=== PATIENT | female | born 1980 | race Caucasian/White ===

== ENCOUNTER → 2024-05-12 15:33 | Outpatient (REF) | payer BC, SELFPAY | LOC: WDC 15:33 | PROVIDERS: ATTENDING PHYSICIAN Obstetrics & Gynecology; FAMILY PHYSICIAN Family Medicine | DX: Z12.31 Encounter for screening mammogram for malignant neoplasm of breast (principal) | CPT/HCPCS: 77063; 77067 ==

== ENCOUNTER 2025-01-29 15:20 | Emergency (ER) | payer BC, SELFPAY ==
[2025-01-29 15:22] VITALS: BP 133/83
[2025-01-29 15:40] LABS: Hematocrit 38.9 % (37.0-47.0); Hemoglobin 12.8 g/dL (12.0-16.0); Mean Corp Hgb Conc. 32.9 g/dL (33.0-37.0); Mean Corpuscular Volume 84.4 fL (81.0-99.0); Nucleated Red Blood Cells % 0 %; Platelet Count 360 10^3/uL (130-400); Red Cell Dist. Width 12.9 % (11.5-14.5)
[2025-01-29 16:05] LABS: ALT (SGPT) 18 U/L (0-35); AST (SGOT) 21 U/L (14-36); Albumin 4.7 g/dl (3.5-5.0); Alkaline Phosphatase 67 U/L (38-126); Blood Urea Nitrogen 18 mg/dl (7-17); Calcium 9.5 mg/dl (8.4-10.2); Carbon Dioxide 29 mmol/L (22-30); Chloride 104 mmol/L (98-107); Glucose 101 mg/dl (70-99); Potassium 4.8 mmol/L (3.5-5.1); Sodium 139 mmol/L (135-145); Total Protein 7.1 g/dl (6.3-8.2); eGFR > 60.00
[2025-01-29 16:07] LABS: Troponin I 0.013 ng/ml
[2025-01-29 17:43] VITALS: BP 137/85
[2025-01-29 18:00] VITALS: BP 130/85
--- NOTE | 2025-01-29 18:18 | ED.GENMED ---
History of Present Illness
General
Chief Complaint: Chest Pain
Source: patient
Exam Limitations: none
Time Seen by Provider: 01/29/25 17:24
History of Present Illness
History of Present Illness:
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 She notes intermittent discomfort shortness of breath fluttering in her chest and a racing heart. She denies fever but she does
note a dry cough uncontrollable. No recent leg swelling or calf pain. She had a flight to [place] in October of this year. She denies hemoptysis. No abdominal pain. No known sick contacts. No other complaints at this time
Past History
Past History
ED Past Medical History: None and Other (Rheumatoid arthritis)
ED Past Surgical History: Other (arthoroscopic left, knee surg, laporoscopy, tonsils)
Social History
Tobacco: Non-smoker
Personal:
Living: with family
Employment: Employed
Phy Exam
Physical Exam
Physical Exam:
General: Well-appearing female no acute respiratory distress
HEENT: Normal cephalic atraumatic
Heart: Regular rate and rhythm
Lungs: Clear no wheeze
Abdomen is soft nontender nondistended
Extremities: No cyanosis or edema
Scores
Heart Score for Chest Pain Patients
STEMI patient?: No
History: Slightly or Non-Suspicious
ECG: Normal
Age: </= 45 years
Risk Factors: No Risk Factors
Troponin: </= Normal Limit
Heart Score for Chest Pain Patients: 0
Heart Score Risk: 2.5% MACE over next 6 weeks
Course
Orders/Labs/Results
Orders:
Orders
01/29/25 15:25
Electrocardiogram (*1) Urgent
Reason for Study: Chest Pain
EKG- Treatment ONCE
01/29/25 15:33
Complete Blood Count/With Diff Urgent
Comprehensive Metabolic Panel Urgent
Troponin I Urgent
01/29/25 17:58
COVID-19 Antigen Urgent
Source: Nasal Swab
D-Dimer Urgent
TSH Reflex To Free T4 Urgent
01/29/25 18:41
CT Chest PE Study Urgent
Comment:
Reason For Exam: chest pain, cough
Abnormal Lab Results
01/29/25 01/29/25
15:33 17:58
WBC 11.8 H 10^3/uL
(4.8-10.8)
MCHC 32.9 L g/dL
(33.0-37.0)
MPV 10.8 H fL
(7.4-10.4)
Absolute Neuts (auto) 8.9 H 10^3/uL
(1.4-6.5)
Absolute Monos (auto) 0.9 H 10^3/uL
(0.1-0.6)
Neutrophils % 75.6 H %
(42.2-75.2)
Lymphocytes % 14.4 L %
(20.5-51.1)
D-Dimer 0.65 H ug/mlFEU
(0.00-0.50)
BUN 18 H mg/dl
(7-17)
Glucose 101 H mg/dl
(70-99)
01/29/25 15:33
01/29/25 15:33
Vital Signs
Initial and Last Documented VS:
Initial Vital Signs
Temp Pulse Resp BP Pulse Ox
98.1 F 94 20 133/83 98
01/29/25 15:22 01/29/25 15:22 01/29/25 15:22 01/29/25 15:22 01/29/25 15:22
Last Documented Vital Signs
Temp Pulse Resp BP Pulse Ox
98.1 F 82 19 132/80 97
01/29/25 15:22 01/29/25 19:45 01/29/25 19:45 01/29/25 19:14 01/29/25 19:45
MDM/Problems Addressed
Differential Diagnosis Includes:
Palpitations, shortness of breath intermittent chest discomfort. EKG shows normal sinus rhythm without ischemic changes. Troponin is 0.013. Will check D-dimer and TSH. Overall appears well with stable vital signs
*Pulse Oximetry
SaO2: 98
Oxygen Mode of Delivery: Room air
Patient hypoxic: not evaluated
*Critical Care Note
Total Time (30-74mins, 75-104mins- exclusive of procedures): Not Applicable
Update Note
Update Note:
D-dimer slightly elevated which prompted a PE study. This was negative for acute finding other than mild amount of subsegmental atelectasis. No arrhythmias noted on monitor cardiac workup normal. Suspect possible underlying viral illness versus
reflux. No indication for admission stable for discharge
ED Attending Note
-
Portions of this chart may have been created with voice recognition software.� Occasional wrong word or��sound alike� substitutions may have occurred due to the inherent limitations of voice recognition software.
Discharge Plan
Departure
Patient Disposition: Home (Routine Discharge)
Date of Disposition: 01/29/25
Time of Disposition: 19:54
Patient with high blood pressure during this ER visit?: No
Discharge Problem:
Palpitations
Instructions: Chest Pain PCP Follow Up
Prescriptions:
No Action
hydroxychloroquine 200 MG tablet
400 mg PO DAILY
melatonin 10 mg Tablet
10 mg PO HS
oxycodone 5 mg Tablet
2.5 mg PO Q4HPRN PRN (Reason: moderate pain) Qty: 0 0RF
oxycodone 5 mg Tablet
5 mg PO Q4HPRN PRN (Reason: severe pain when tolerating PO) Qty: 12 0RF
acetaminophen [Pain Reliever ES(acetaminophn)] 500 mg Tablet
1,000 mg PO Q6HPRN PRNQty: 0 0RF
ibuprofen 600 mg Tablet
600 mg PO Q6HPRN PRN (Reason: mild cramps) Qty: 0 0RF
Referrals:
Christiana Collado MD [Family Provider, Family Practice]
Activity Restrictions/Additional Instructions:
Rest. Stay hydrated. Return if worse otherwise follow-up with your doctor
Interventions
Interventions:
*Risk Screen - Suicide Last Done: 01/29/25 15:22
*General Assessment Last Done: 01/29/25 15:22
*Neglect/Abuse Screening Last Done: 01/29/25 15:22
*ED- Fall Risk Assessment Last Done: 01/29/25 19:25
*ED COVID-19 Vaccine History Last Done: 01/29/25 19:41
*ED Influenza Vaccine History Last Done: 01/29/25 19:41
ED- Cardiac Assessment Last Done: 01/29/25 19:42
Discharge Date and Time
Print Language: CAMEROONIAN
[2025-01-29 18:25] LABS: D-Dimer 0.65 ug/mlFEU (0.00-0.50)
[2025-01-29 18:28] LABS: COVID-19 Antigen Negative (Negative)
[2025-01-29 19:14] VITALS: BP 132/80
== END 2025-01-29 20:38 | disposition home or self-care (01) ==
LOC: EMR 15:20
PROVIDERS: Physician Assistant; Student in an Organized Health Care Education/Training Program; EMERGENCY PHYSICIAN Emergency Medicine; FAMILY PHYSICIAN Family Medicine
DX: R00.2 Palpitations (principal); M06.9 Rheumatoid arthritis, unspecified
CPT/HCPCS: 99284; 71275; 80053; 84443; 84484; 85025; 85379; 87811; 93005; Q9967